=== PATIENT | female | born 1985 | race American Indian/Alaskan Native ===

== ENCOUNTER 2018-03-07 14:47 | Emergency (ER) | payer OTHER, MEDICAID, SELFPAY ==
[2018-03-07 15:13] VITALS: BP 111/69; PULSE 73; RESP 20; TEMP 36.8; O2SAT 98; BMI 34.7
[2018-03-07 18:45] VITALS: PULSE 78; RESP 16; TEMP 37; O2SAT 98
[2018-03-07] MEDS: DOXYCYCLINE HYCLATE 100 MG TABLET PO (18:45)
--- NOTE | 2018-03-07 18:53 | PC.NURSE ---
Pt has multiple open lesions to LE, wound has been cultured and dressed.
--- NOTE | 2018-03-08 02:45 | ED.EXTPRO ---
HPI - Extremity Problem General Chief complaint: Extremity Problem,Nontraumatic Stated complaint: INFECTION ON LEG,FEVER Time Seen by Provider: 03/07/18 18:03 History of Present Illness HPI Narrative: 32-year-old female daily smoker presents with family in the chief complaint of pain, redness and swelling of her right anterior lower extremity. A few weeks ago she bumped her leg on an unknown object in suffered an abrasion. Over the past few days she has had increasing redness and pustules developed. She denies any history of MRSA or other skin infection. She denies any calf pain or other leg pain. She has no fever chills, nausea or vomiting. She denies recent travel or history of blood clots MD Complaint: extremity pain and extremity swelling Onset (ago): day(s) Pain Consistency: constant Location: right Quality: burning and aching Radiation: none Exacerbating factors: nothing Associated symptoms: denies other symptoms Related Data Previous Rx's Medication Instructions Recorded doxycycline hyclate 100 mg PO BID #20 tab 03/07/18 Allergies Allergy/AdvReac Type Severity Reaction Status Date / Time No Known Drug Allergies Allergy Verified 03/07/18 18:45 Review of Systems Review of Systems All systems reviewed & are unremarkable except as noted in HPI and below Constitutional Denies chills, Denies fever(s), Denies lethargy and Denies weakness Eyes Denies change in vision, Denies eye discharge, Denies irritation and Denies loss of vision ENT Ears, Nose, Mouth, and Throat: Denies change in voice, Denies neck pain and Denies sore throat Cardiovascular Denies chest pain, Denies irregular heart rhythm, Denies lightheadedness, Denies palpitations, Denies dyspnea, Denies dyspnea on exertion and Denies orthopnea Respiratory Denies cough, Denies dyspnea, Denies dyspnea on exertion and Denies wheezing Gastrointestinal Gastrointestinal: Denies abdominal pain, Denies change in bowel habits, Denies diarrhea, Denies nausea and Denies vomiting Genitourinary Denies hematuria, Denies flank pain, Denies urinary incontinence and Denies urinary urgency Musculoskeletal Denies neck pain Integumentary/Breasts Denies pruritus, Reports erythema, Denies rash, Reports skin pain, Reports skin swelling and Denies wounds Neurologic Denies confusion, Denies loss of vision and Denies weakness Psychiatric Denies anxiety, Denies confusion, Denies depression, Denies homicidal ideation and Denies suicidal ideation Endocrine Denies palpitations Hematologic/Lymphatic Denies easy bruising Allergic/Immunologic Denies wheezing PFSH Social History Smoking Status: Current every day smoker Exam Narrative Exam Narrative: GEN: AOx3 and in mild distress EYES: Pupils are equal, round, and reactive to light and accommodation. Extraoccular muscles are intact bilaterally. There is no subconjunctival hemorrhage or exudate. CHEST: Lungs are clear to auscultation bilaterally and free of wheezes, rales, or rhonchi. Heart rate is regular rhythm, there are no murmurs, clicks, rubs, or gallops. There is no chest wall tenderness. ABD: Abdomen is soft and nontender. There is no guarding or rebound. Bowel sounds are normal in all 4 quadrants. There is no mass or organomegaly. EXT: Full painless ROM of all extremities with no loss of sensation or strength. SKIN: Is erythema and warmth with mild tenderness to right anterior lower extremity. There are few areas with intact pustules but no induration or fluctuance to suggest underlying abscess. It is only on the front of her leg, not circumferential. She has no calf tenderness, pain or swelling Initial Vital Signs Initial Vital Signs: Vital Signs Temperature 98.3 F 03/07/18 15:13 Pulse Rate 73 03/07/18 15:13 Respiratory Rate 20 03/07/18 15:13 Blood Pressure 111/69 03/07/18 15:13 Pulse Oximetry 98 03/07/18 15:13 Procedures Abscess I/D Site: lower extremity Side (if applicable): right Technique: incised with #11 blade Amount of fluid expressed (mL): 0.1 Irrigation: No Packing used?: none Course Orders Ordered: Discontinued Medications Doxycycline Hyclate (Vibramycin) 100 mg PO NOW ONE Stop: 03/07/18 18:31 Last Admin: 03/07/18 18:45 Dose: 100 mg Reevaluation(s) Reevaluation #1: Very small pustule incised with 11 blade and pus expressed, sent to lab as wound culture Discharge Plan Departure Patient Disposition: Home Clinical Impression: Cellulitis of leg, right Discharge Date/Time: 03/07/18 18:56 Interventions: ED Discharge Assessment Last Done: 03/07/18 18:45 Instructions: DI for Cellulitis -- Adult Activity Restrictions/Additional Instructions: *You have been diagnosed with [ right leg cellulitis with pustules ] *What to do: *Take medications as directed *Follow up with your primary care provider in 2-3 days, call for an appointment. Let them know you were seen in the Emergency Department and that we ask that you be seen in follow up *Return to ER if you should have any new, worsening or concerning symptoms Prescriptions: New doxycycline hyclate 100 mg tablet 100 mg PO BID Qty: 20 RF: 0
== END 2018-03-07 18:56 | disposition home or self-care (01) ==
PROVIDERS: Emergency Provider Emergency Medicine
DX: L03.115 Cellulitis of right lower limb (principal)
CPT/HCPCS: 87070; 87075; 87077; 87147; 87205; 99282; 99283

== ENCOUNTER → 2018-06-19 15:28 | Outpatient (CLI) | payer OTHER, MEDICAID, SELFPAY ==
--- NOTE | 2018-06-19 | DI.RAD.S_ITS ---
PROCEDURE: XR LUMBAR SPINE 2-3V INDICATIONS: pain, radiculopathy TECHNIQUE: 2 views of the lumbar spine were acquired. COMPARISON: [facility], , -SPINE 2-3 VIEWS, 09/30/2014, 17:41. FINDINGS: Bones: 5 [id number] vertebrae are present. There is near-normal bony alignment, with a slight degree of convex rightward scoliosis centered at L3. No vertebral body compression fractures. No suspicious bony lesions. Soft tissues: Overlying bowel gas pattern is normal. No suspicious soft tissue calcifications. IMPRESSION: Degenerative disc disease has not worsened along the lumbosacral spine and is best seen at L4-5 and especially L5-S1. Facet osteoarthritis over this lower 2 levels also has not worsened and is most prominent at L5-S1. No compression fracture is present. Nerve root impingement likely is present given the symptomatology reported and the degree of degeneration seen. Dictated by: Michel Mcintyre M.D. on 06/19/2018 at 16:17 Approved by: Michel Mcintyre M.D. on 06/19/2018 at 16:19
== END ==
PROVIDERS: Visit Provider Family Medicine
DX: M54.5 Low back pain (principal); M51.16 Intervertebral disc disorders with radiculopathy, lumbar region; M51.17 Intervertebral disc disorders with radiculopathy, lumbosacral region; M47.26 Other spondylosis with radiculopathy, lumbar region; M47.27 Other spondylosis with radiculopathy, lumbosacral region
CPT/HCPCS: 72100

== ENCOUNTER 2023-02-22 14:31 | Emergency (ER) | payer OTHER, SELFPAY ==
[2023-02-22 14:40] VITALS: BP 120/59; PULSE 90; RESP 18; TEMP 36.9; O2SAT 98; BMI 37.8
[2023-02-22 17:29] VITALS: BP 119/58; PULSE 78; RESP 18; O2SAT 99
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
== END 2023-02-22 17:56 | disposition home or self-care (01) ==
PROVIDERS: Emergency Provider Physician Assistant
DX: S09.8XXA Other specified injuries of head, initial encounter (principal); V43.52XA Car driver injured in collision with other type car in traffic accident, initial encounter
CPT/HCPCS: 99281; 99282

== ENCOUNTER 2024-05-09 15:38 | Emergency (ER) | payer MEDICAID, OTHER, SELFPAY ==
[2024-05-09] VITALS (8 sets, daily range): BP systolic 115–134; BP diastolic 56–78; PULSE 91–118; RESP 18–24; TEMP 38.1–39.4; O2SAT 90–93; BMI 46.0
--- NOTE | 2024-05-09 16:06 | DI.RAD.S_ITS ---
PROCEDURE: XR CHEST 2V INDICATIONS: Cough congestion TECHNIQUE: 2 views of the chest were acquired. COMPARISON: None. FINDINGS AND IMPRESSION: No dense airspace disease or pleural effusions. Normal heart size. Unremarkable osseous structures. Dictated by: Jose Robison M.D. on 05/09/2024 at 17:11 Approved by: Jose Robison M.D. on 05/09/2024 at 17:11
[2024-05-09 16:57] LABS: Influenza A - CEPHEID Flu A POSITIVE (NEGATIVE); Influenza B - CEPHEID Flu B NEGATIVE (NEGATIVE); Respiratory Syncytial Virus Negative (Negative)
[2024-05-09 16:58] LABS: COVID-19 CEPHEID 4-PLEX PCR Negative (Negative)
[2024-05-09] MEDS: ALBUTEROL/IPRATROPIUM 3 ML AMPUL INH (18:50)
[2024-05-09] MEDS: ACETAMINOPHEN 325 MG TABLET 975 MG PO (19:03)
--- NOTE | 2024-05-09 19:13 | ED.GENADULT ---
HPI - General Adult General Chief complaint: Upper Respiratory Symptoms Stated complaint: SOB, fever, congestion Time Seen by Provider: 05/09/24 18:44 Source: patient Mode of arrival: Wheelchair History of Present Illness HPI narrative: 39-year-old woman with fever, body aches dyspnea since May 04. describes a sense of difficulty in taking a deep breath with reasonable saturations in triage. Mild nausea no actual vomiting. She is able to keep liquids down has a loss of appetite. No no chest pain or palpitations, minimal cough Related Data Allergies Allergy/AdvReac Type Severity Reaction Status Date / Time No Known Drug Allergies Allergy Verified 05/09/24 15:59 Review of Systems Review of Systems Narrative: Pertinent positive and negative findings as per HPI Patient History Social History Smoking Status: Current every day smoker Smoking Status: Current every day smoker tobacco type: vaping Exam Initial Vital Signs Initial Vital Signs: Vital Signs Temperature 100.5 F H 05/09/24 15:59 Pulse Rate 101 H 05/09/24 15:59 Respiratory Rate 24 05/09/24 15:59 Blood Pressure 125/59 L 05/09/24 15:59 Pulse Oximetry 93 05/09/24 15:59 Oxygen Delivery Method Room Air 05/09/24 15:59 General: Alert , Appears to feel unwell but is able to fully cooperate with exam. Speaking in full sentences, no accessory muscle use Respiratory: lungs are clear, no wheezing, no rhonchi Cardiac: Minor tachycardia without murmur Skin: No obvious rashes, warm and dry Neurologic: Grossly intact no obvious asymmetries or abnormalities Psych: appropriate insight and affect, cooperative Course Orders Ordered: ED Orders 05/09/24 16:05 Covid-19 + FLU A/B + RSV - PCR Stat 05/09/24 16:06 XR chest 2V Stat Discontinued Medications Acetaminophen (Acetaminophen 325 Mg Tablet) 975 mg PO NOW ONE Stop: 05/09/24 19:01 Last Admin: 05/09/24 19:03 Dose: 975 mg Documented By: TWYLA Albuterol/Ipratropium (Albuterol/Ipratropium 3 Ml Ampul) 3 ml INH NOW ONE Stop: 05/09/24 18:46 Vital Signs Vital signs: Vital Signs - 8 hr 05/09/24 15:59 05/09/24 17:28 05/09/24 18:30 Temperature 100.5 F H Pulse Rate 101 H 99 H 92 H Respiratory Rate 24 18 Blood Pressure 125/59 L 115/62 Pulse Oximetry 93 90 L Oxygen Delivery Method Room Air Room Air 05/09/24 18:31 05/09/24 18:31 Temperature 103 F H Pulse Rate 92 H Respiratory Rate Blood Pressure 120/56 L Pulse Oximetry Oxygen Delivery Method Medical Decision Making Lab Data Labs: Lab Results 05/09/24 Range/Units 16:05 SARS-CoV-2 (PCR) Negative (Negative) Influenza A (RT-PCR) Flu a positive H (NEGATIVE) Influenza B (RT-PCR) Flu b negative (NEGATIVE) RSV (PCR) Negative (Negative) MDM Narrative Medical decision making narrative: 39-year-old woman with no significant medical history with fever, cough body aches and general misery since the . She has been taking Tylenol. She feels like she has not getting a deep breath but oxygen saturations are in the 94% range on room air. When she does sit up and takes a couple of deep breaths saturations go up to 98%. There was no significant wheezing appreciated. Other family members at home with similar symptoms. She is now testing positive for influenza. Currently on day 5 she is out of the window for Tamiflu. She was given an albuterol inhaler in the emergency department with minimal benefit. We discussed anticipated course of resolution, reasons to return to the emergency department, what a post viral complication or bacterial infection would look like and she has given a work note. she is able to, eat, drink, does not need oxygen and does not need hospitalization at this time.Questions are answered and she is safe for discharge Discharge Plan Departure Patient Disposition: Home Clinical Impression: Influenza Instructions: DI for Influenza -- Adult Activity Restrictions/Additional Instructions: thank you for coming in today you have influenza a. I have given you some information about the flu. Typically people have high fevers, feel truly horrible and after 7-10 days began to improve. At this time there is no concern for bacterial complication, collapsed lung, wheezing. I would recommend that when you are up and about that you focus on taking a number of very deep breaths to keep your lungs open. Frequently this can help with the sensation that you are not getting enough air. Your oxygen levels in the emergency department were reassuring. Continue using Tylenol, ibuprofen plenty of fluids and resting as needed. If you find that you are getting worse, please return to the ER Referrals: Rusty,Doctor, MD [Primary Care Provider] - Stand Alone Forms: Patient Portal/API/Survey, Work Release Note
== END 2024-05-09 19:43 | disposition home or self-care (01) ==
PROVIDERS: Emergency Medicine; Emergency Provider Emergency Medicine
DX: J10.1 Influenza due to other identified influenza virus with other respiratory manifestations (principal); F17.200 Nicotine dependence, unspecified, uncomplicated
CPT/HCPCS: 87635; 87400 ×2; 87420; 0241U; 71046; 94640; 99283

== ENCOUNTER 2024-05-15 19:07 | Emergency (ER) | payer MEDICAID, OTHER, SELFPAY ==
[2024-05-15] VITALS (16 sets, daily range): BP systolic 101–125; BP diastolic 53–65; PULSE 77–100; RESP 19–26; TEMP 36.8–36.9; O2SAT 90–95; BMI 37.8
--- NOTE | 2024-05-15 19:21 | DI.RAD.S_ITS ---
PROCEDURE: XR CHEST 1V INDICATIONS: Shortness of breath TECHNIQUE: One view of the chest was acquired. COMPARISON: [facility], CR, XR CHEST 2V, 05/09/2024, 16:19. FINDINGS: Surgical changes and devices: None. Lungs and pleura: Ill-defined airspace opacity in right infrahilar region is seen. Mild pulmonary vascular congestion is also seen. No pleural effusions or pneumothorax. Mediastinum: Mediastinal contours appear normal. Heart size is normal. Bones and chest wall: No suspicious bony lesions. Overlying soft tissues appear unremarkable. IMPRESSION: Mild pulmonary vascular congestion and suggestion of right lower lobe infiltrate/atelectasis. No pleural effusion or pneumothorax. Dictated by: Jovanny Beavers M.D. on 05/15/2024 at 20:32 Approved by: Jovanny Beavers M.D. on 05/15/2024 at 20:32
[2024-05-15 19:50] LABS: Hemoglobin 11.3 g/dL (12.0-16.0); Mean Corpuscular HGB Conc 35.3 % (30-36); Mean Corpuscular Hemoglobin 29.7 PG (26-34); Mean Corpuscular Volume 84.1 fL (80-100); Platelet Count 847 X10^3/uL (150-400); Red Cell Distribution Width 12.5 % (11.6-14.8); White Blood Cell Count 28.7 X10^3/uL (4.5-11.0)
[2024-05-15 19:55] LABS: INR 1.7 (0.9-1.3); Prothrombin Time 19.5 SECONDS (9.4-12.5)
[2024-05-15 19:59] LABS: Alanine Aminotransferase 37 IU/L (<35); Albumin 3.8 g/dL (3.5-5.0); Albumin Globulin Ratio 0.8 (1.0-2.8); Alkaline Phosphatase 178 U/L (38-126); Aspartate Aminotransferase 54 IU/L (14-36); BUN Creatinine Ratio 6.8 (6-22); Bilirubin Total 0.6 mg/dL (0.2-1.3); Blood Urea Nitrogen 5 mg/dL (7-17); Calcium 7.9 mg/dL (8.4-10.2); Carbon Dioxide 34 mmol/L (22-32); Chloride 96 mmol/L (98-107); Estimated Glomerular Filt Rate > 60 mL/min (>60); Globulin 4.7 g/dL (1.7-4.1); Glucose 119 mg/dL (70-100); HEMOLYSIS < 15 (0-50); Lactate (Lactic Acid) 1.3 mmol/L (0.7-2.1); Potassium 2.9 mmol/L (3.4-5.1); Sodium 138 mmol/L (137-145); Total Protein 8.5 g/dL (6.3-8.2)
[2024-05-15 20:01] LABS: Add Manual Diff / Slide Review YES
[2024-05-15] MEDS: ALBUTEROL/IPRATROPIUM 3 ML AMPUL INH (20:01)
[2024-05-15 20:11] LABS: NT-proBNP (BNP-Adult 18+) 154 pg/mL (<125); Troponin I < 0.012 ng/mL (0.01-0.034)
[2024-05-15 20:15] LABS: Neutrophils Absolute Manual 26404 /uL (3000-5900); RBC Morphology Normal Morphology; Total Cells Counted 100
--- NOTE | 2024-05-15 20:21 | EKG_ITS ---
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
[2024-05-15] MEDS: POTASSIUM CHLORIDE 20 MEQ/15 ML UDC 40 MEQ PO (20:22)
--- NOTE | 2024-05-15 20:28 | PC.NURSE ---
Blood culture #1 drawn at 2026. 2nd drawn by lab
[2024-05-15] MEDS: SODIUM CHLORIDE 0.9% 1,000 ML 1000 ML IV (20:35)
--- NOTE | 2024-05-15 21:03 | ED_ITS ---
HPI - General Adult General Chief complaint: Shortness of Breath/Dyspnea Stated complaint: O2 85 while walking sent from [facility] Time Seen by Provider: 05/15/24 20:10 Source: patient Mode of arrival: Ambulatory History of Present Illness HPI narrative: 39-year-old female has 11 days duration of cough recently productive, increasing shortness of breath, no chronic lung problems, no oxygen use at home. No lower extremity edema, no history of heart failure. No history of known blood clots to legs or lungs. Denies leg pain or swelling symptoms. Denies fevers or chills recent days, felt feverish early in this recent illness. Currently not taking antibacterial or antiviral medications. Related Data Previous Rx's Medication Instructions Recorded albuterol sulfate 90 mcg/actuation 2 puff inhalation Q6H PRN 05/15/24 aerosol inhaler shortness of breath or wheezing #8.5 grams levofloxacin 750 mg tablet 500 mg (0.6667 x 750 mg) PO DAILY 05/15/24 #20 tabs Allergies Allergy/AdvReac Type Severity Reaction Status Date / Time No Known Drug Allergies Allergy Verified 05/09/24 15:59 Patient History Social History Smoking Status: Current every day smoker Smoking Status: Current every day smoker tobacco type: vaping Exam Narrative Exam Narrative: GENERAL: Well-developed patient, in mild distress. HEAD: Atraumatic. Normocephalic. EYES: Pupils equal round and reactive. Extraocular motions intact. No scleral icterus. No injection or drainage. ENT: Nose without bleeding, purulent drainage. Throat without erythema, tonsillar hypertrophy or exudate. Airway patent. NECK: Trachea midline. Non tender CARDIOVASCULAR: Regular rate and rhythm without murmurs, gallops, or rubs. RESPIRATORY: Clear to auscultation. Breath sounds equal bilaterally. No wheezes, rales, or rhonchi. GASTROINTESTINAL: Abdomen soft, non-tender, nondistended. EXTREMITIES: No edema or joint tenderness. BACK: Nontender without deformity or crepitance. No flank tenderness. NEURO: AOx3. Motor functions grossly nonfocal SKIN: No rash or erythema of visible areas Initial Vital Signs Initial Vital Signs: Vital Signs Temperature 98.5 F 05/15/24 19:11 Pulse Rate 88 05/15/24 19:11 Respiratory Rate 24 03/05/25 19:11 Blood Pressure 109/60 05/15/24 19:11 Pulse Oximetry 92 05/15/24 19:11 Oxygen Delivery Method Room Air 05/15/24 19:11 Course Orders Ordered: ED Orders 05/15/24 19:21 XR chest 1V Stat EKG-12 Lead Stat 05/15/24 19:39 Complete Blood Count AUTO DIFF Stat Comprehensive Metabolic Panel Stat Lactate (Lactic Acid) Stat NT-proBNP (BNP-Adult 18+) Stat Prothrombin Time INR Stat Troponin I Stat 05/15/24 20:30 Blood Culture Stat Discontinued Medications Albuterol/Ipratropium (Albuterol/Ipratropium 3 Ml Ampul) 3 ml INH NOW ONE Stop: 05/15/24 19:53 Last Admin: 05/15/24 20:01 Dose: 3 ml Documented By: Sodium Chloride (Normal Saline 0.9%) 1,000 mls @ 1,000 mls/hr IV BOLUS ONE Stop: 05/15/24 21:33 Last Infusion: 05/15/24 21:18 Dose: Infused Documented By: (Frances) Admin: 05/15/24 20:35 Dose: 1,000 mls/hr Documented By: (2) Levofloxacin (Levaquin) 750 mg in 150 mls @ 100 mls/hr IV NOW ONE Stop: 05/15/24 23:03 Last Infusion: 05/15/24 23:08 Dose: Infused Documented By: (2) Admin: 05/15/24 21:37 Dose: 100 mls/hr Documented By: (2) Methylprednisolone (Methylprednisolone 125 Mg/2 Ml Vial) 125 mg IV NOW ONE Stop: 05/15/24 21:17 Last Admin: 05/15/24 21:19 Dose: 125 mg Documented By: (2) Potassium Chloride (Potassium Chloride 20 Meq/15 Ml Udc) 40 meq PO NOW ONE Stop: 05/15/24 20:12 Last Admin: 05/15/24 20:22 Dose: 40 meq Documented By: (2) Vital Signs Vital signs: Vital Signs - 8 hr 05/15/24 20:15 05/15/24 20:15 05/15/24 20:30 Temperature Pulse Rate 97 H 100 H Respiratory Rate 24 24 Blood Pressure 111/54 L Pulse Oximetry 90 L 91 05/15/24 20:37 05/15/24 20:37 05/15/24 21:00 Temperature Pulse Rate 95 H 94 H Respiratory Rate 21 25 H Blood Pressure 125/60 Pulse Oximetry 90 L 95 05/15/24 21:24 05/15/24 21:24 05/15/24 21:30 Temperature Pulse Rate 91 H 94 H Respiratory Rate 21 25 H Blood Pressure 115/54 L Pulse Oximetry 93 94 05/15/24 22:00 05/15/24 22:30 05/15/24 23:00 Temperature Pulse Rate 91 H 88 88 Respiratory Rate 26 H 23 26 H Blood Pressure Pulse Oximetry 92 91 92 05/15/24 23:06 05/15/24 23:06 Temperature 98.3 F Pulse Rate 99 H Respiratory Rate 25 H Blood Pressure 107/53 L Pulse Oximetry 94 Medical Decision Making Lab Data Lab results reviewed: Yes I reviewed the patient's lab results. Lab results narrative: White blood cell count 76521, hemoglobin 11.3, platelets 147,000 reactive thrombocytosis. Potassium low 2.9. Sodium 138. Serum CO2 34. Chloride 96. BUN 5 with creatinine 0.73. Glucose 119. Normal total bilirubin, slight elevation of alkaline phosphatase and transaminases. Troponin negative/unmeasurable. 05/15/24 19:39 05/15/24 19:39 Labs: Lab Results 05/15/24 Range/Units 19:39 WBC 28.7 H (4.5-11.0) X10^3/uL RBC 3.80 L (4.0-5.2) X10^6/uL Hgb 11.3 L (12.0-16.0) g/dL Hct 32.0 L (36-46) % MCV 84.1 (80-100) fL MCH 29.7 (26-34) PG MCHC 35.3 (30-36) % RDW 12.5 (11.6-14.8) % Plt Count 847 H (150-400) X10^3/uL Neut % (Auto) Not Reportable Lymph % (Auto) Not Reportable Crane % (Auto) Not Reportable Eos % (Auto) Not Reportable Baso % (Auto) Not Reportable Lymph # (Auto) Not Reportable Crane # (Auto) Not Reportable Baso # (Auto) Not Reportable Total Counted 100 Seg Neutrophils % 91.0 H (38-70) % Band Neutrophils % 1.0 L (3-7) % Lymphocytes % (Manual) 8.0 L (25-45) % Neutrophils # (Manual) 75176 H (1107-6598) /uL RBC Morphology Normal morphology PT 19.5 H (9.4-12.5) SECONDS INR 1.7 H (0.9-1.3) Sodium 138 (137-145) mmol/L Potassium 2.9 L (3.4-5.1) mmol/L Chloride 96 L (98-107) mmol/L Carbon Dioxide 34 H (22-32) mmol/L BUN 5 L (7-17) mg/dL Creatinine 0.73 (0.52-1.04) mg/dL Estimated GFR > 60 (>60) mL/min BUN/Creatinine Ratio 6.8 (6-22) Glucose 119 H (70-100) mg/dL Lactate 1.3 (0.7-2.1) mmol/L Calcium 7.9 L (8.4-10.2) mg/dL Total Bilirubin 0.6 (0.2-1.3) mg/dL AST 54 H (14-36) IU/L ALT 37 H (<35) IU/L Alkaline Phosphatase 178 H (38-126) U/L Troponin I < 0.012 (0.01-0.034) ng/mL NT-Pro-B Natriuret Pep 154 H (<125) pg/mL Total Protein 8.5 H (6.3-8.2) g/dL Albumin 3.8 (3.5-5.0) g/dL Globulin 4.7 H (1.7-4.1) g/dL Albumin/Globulin Ratio 0.8 L (1.0-2.8) ECG Data Interpretation: Normal sinus rhythm with rate of 95, no obvious ST segment elevation or depression changes. RI 152, QRS 86, QTC 442. MDM Narrative Medical decision making narrative: 39-year-old female without chronic lung or heart problems, with 11 days of cough more recently productive, increased shortness of breath. Normal oxygenation, normal respiratory. Lungs clear on examination. Trial of albuterol. EKG and troponin negative. Screening labs otherwise showed low potassium, oral repletion given. Chest x-ray report describes right lower lobe infiltrate versus atelectasis. IV Levaquin antibiotic. Patient normotensive, no tachycardia, no tachypnea, no oxygen requirement, did have high leukocyte count, also reactive thrombocytosis, could consider admission, patient prefers trial of outpatient antibiotic therapy for now. Prescription for further Levaquin antibiotic to take daily for 10 day course prescribed. Prescription for inhaler to use 2 puffs 4 times daily on a regular scheduled for this next week, dispensed spacer to use with this inhaler. Advised close follow up with your regular provider in the counter clinic in 2 days. Return precautions discussed. Home with family. Discharge Plan Departure Patient Disposition: Home Clinical Impression: Influenza, Pneumonia, Hypokalemia, Leukocytosis Activity Restrictions/Additional Instructions: Ms. Zuniga. You had 11 days of cough that has been productive, with increasing shortness of breath. Initial oxygenation was recorded at 88%, breathing treatment given, no wheezing heard, chest x-ray was suspicious for possible right lower lobe pneumonia like changes per Radiology report. IV antibiotics Levaquin given. Prescription sent for further antibiotic oral Levaquin to take for 10 days. Inhaler to use to keep your lungs open as well, 2 puffs 4 times daily with the use of a spacer. Consider recheck of your lungs and your symptoms in the next couple of days with your regular doctor. Return to this/nearest emergency department for any change worsening symptoms or any concerns prior. Thank you for allowing our team to evaluate you today. Also your blood potassium level was low, oral potassium was given, consider recheck in a couple of days with your regular doctor in clinic as well. Prescriptions: New levofloxacin 750 mg tablet 500 mg PO DAILY Qty: 20 0RF albuterol sulfate 90 mcg/actuation HFA aerosol inhaler 2 puff inhalation Q6H PRN (Reason: shortness of breath or wheezing) Qty: 8.5 0RF Referrals: Miscellaneous,Doctor, MD [Primary Care Provider] - Stand Alone Forms: Patient Portal/API/Survey
[2024-05-15] MEDS: methylPREDNISolone 125 MG/2 ML VIAL IV (21:19)
[2024-05-15] MEDS: levoFLOXacin 750 MG/150 ML PIGGYBACK 100 MG IV (21:37)
== END 2024-05-15 23:14 | disposition home or self-care (01) ==
PROVIDERS: Emergency Provider Emergency Medicine
DX: J10.1 Influenza due to other identified influenza virus with other respiratory manifestations (principal); J18.9 Pneumonia, unspecified organism; E87.6 Hypokalemia; D72.829 Elevated white blood cell count, unspecified; R05.9 Cough, unspecified; F17.291 Nicotine dependence, other tobacco product, in remission
CPT/HCPCS: 36415; 71045; 80053; 83605; 83880; 84484; 85007; 85025; 85610; 87040; 93005; 94640; 96361; 96365; 96366; 96375; 99284; J1956; J2919